=== PATIENT | male | born 2000 | race African-American/Black ===

== ENCOUNTER 2024-04-18 18:18 | Emergency (ER) | payer OTHER ==
[~2024-04-18] VITALS: Ht 193 cm; Wt 81.8 kg
[2024-04-18 18:29] VITALS: TEMP 98.2
[2024-04-18 20:35] VITALS: BP 118/61; PULSE 59; RESP 17
[2024-04-18] MEDS ORDERED: IBUP-1492 PO (20:37)
[2024-04-18] MEDS: IBUPROFEN 600 MG TABLET PO ONE (20:46)
== END 2024-04-18 20:58 | disposition home or self-care (01) ==
LOC: EMS 18:18
DX: S83.91XA Sprain of unspecified site of right knee, initial encounter (principal); X58.XXXA Exposure to other specified factors, initial encounter; Y93.01 Activity, walking, marching and hiking; Y92.89 Other specified places as the place of occurrence of the external cause; Y99.8 Other external cause status
CPT/HCPCS: 99283